=== PATIENT | male | born 1955 | race Caucasian/White ===

== ENCOUNTER → 2025-03-16 11:13 | Outpatient (CLI) | payer OTHER, SELFPAY ==
--- NOTE | 2025-03-16 11:19 | DI.RAD.S_ITS ---
PROCEDURE: XR HIP W PEL IF DONE LT 2V INDICATIONS: L HIP ARTHRITIS TECHNIQUE: AP pelvis with lateral view(s) of the left hip(s). COMPARISON: None. FINDINGS: Bones: No fractures or dislocations. 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 Pelvic ring appears intact. No suspicious bony lesions. Soft tissues: The visualized bowel gas pattern is normal. No suspicious soft tissue calcifications. IMPRESSION: Degenerative change of the left hip without evidence of acute bony abnormality. Dictated by: Brooks Gonzalez M.D. on 03/17/2025 at 23:17 Approved by: Brooks Gonzalez M.D. on 03/17/2025 at 23:18
== END ==
LOC: RAD 11:17
PROVIDERS: Referring Provider Chiropractor; Visit Provider Chiropractor
DX: M13.852 Other specified arthritis, left hip (principal)
CPT/HCPCS: 73502